=== PATIENT | male | born 1970 | race Caucasian/White ===

== ENCOUNTER 2017-12-29 12:56 | Emergency (ER) | payer OTHER ==
[~2017-12-29] VITALS: Ht 175.3 cm; Wt 95.3 kg
[~2017-12-29 12:56] MED LIST: PRM25T PO
[2017-12-29] MEDS ORDERED: RT-ALBUINH IH (14:11)
[2017-12-29] MEDS ORDERED: AMOX500T2 PO (14:11)
--- NOTE | 2017-12-29 14:14 | ED General ---
General Chief Complaint: Cough/Cold/Flu Symptoms Stated Complaint: CHEST CONGESTION,SORE THROAT,NASAL DRAINAGE Nursing Triage Note: PT HAS COUGH COLD, SINUS PRESSURE, SORETHROAT FOR APPROX 2 WEEKS DENIES FEVER Nursing Sepsis Screen: No Definite Risk Source of Information: Patient Exam Limitations: No Limitations History of Present Illness Date Seen by Provider: Dec 29, 2017 Time Seen by Provider: 13:09 Initial Comments This 47-year-old gentleman presents to the emergency room with complaints of sinus pressure, postnasal drip, sore throat, tightness a popping in the ears, and drainage that feels like it's moving into the chest. He does have some cough productive of mucus. Symptoms have been ongoing for almost 2 weeks. He reports phlegm is dark in color. His voice is hoarse which is affecting his work. He denies any fever. He recently moved to [place] from [place]. She moved back to the [facility] from working in [employer] over a year ago. He has been taking Mucinex and other zpro-lch-oqlkshz medications for his symptoms. Allergies and Home Medications Allergies Coded Allergies: No Known Drug Allergies (Unverified , 04/07/10) Home Medications Albuterol Sulfate 1 Puff Puff, 2 PUFF IH Q4H PRN for WHEEZING 1 PUFF = 90 MCG Prescribed by: FRANKY CAM on 12/29/17 1411 Amoxicillin 500 Mg Tablet, 1,000 MG PO BID Prescribed by: FRANKY CAM on 12/29/17 1411 Promethazine Hcl 25 Mg Tablet, 1 TAB PO QID PRN Prescribed by: VIC LI on 04/07/108 Patient Home Medication List Home Medication List Reviewed: Yes Review of Systems Review of Systems Constitutional: no symptoms reported EENTM: see HPI Respiratory: see HPI Cardiovascular: no symptoms reported Gastrointestinal: no symptoms reported Genitourinary: no symptoms reported Musculoskeletal: no symptoms reported Skin: no symptoms reported Psychiatric/Neurological: No Symptoms Reported Hematologic/Lymphatic: No Symptoms Reported Immunological/Allergic: no symptoms reported Past Zcunoix-Gwowtj-Ewnmrd Hx Patient Social History Alcohol Use: Denies Use Recreational Drug Use: No Smoking Status: Never a Smoker Recent Foreign Travel: No Contact w/Someone Who Travel: No Recent Infectious Disease Expo: No Recent Hopitalizations: No Past Medical History Surgeries: No Respiratory: No Cardiac: No Neurological: No Reproductive Disorders: No Gastrointestinal: No Musculoskeletal: No Endocrine: Yes (PITUITARY TUMOR) HEENT: No Psychosocial: No Integumentary: No Physical Exam Vital Signs Vital Signs - First Documented 12/29/17 13:00 Temp 98.6 Pulse 79 Resp 18 B/P (MAP) 134/86 (102) Pulse Ox 99 Capillary Refill : Less Than 3 Seconds Height, Weight, BMI Height: 5'9.00" Weight: 210lbs. oz. 95.714080mq; BMI Method:Stated General Appearance: No Apparent Distress, WD/WN HEENT: PERRL/EOMI, Normal ENT Inspection, Other (cobblestoning and postnasal drip in the posterior pharynx. Tympanic membranes retracted bilaterally.) Neck: Normal Inspection Respiratory: Lungs Clear, Normal Breath Sounds, No Accessory Muscle Use, No Respiratory Distress, Other (slight forced expiratory wheeze) Cardiovascular: Regular Rate, Rhythm, No Edema, No Murmur Extremity: Normal Inspection Neurologic/Psychiatric: Alert, Oriented x3, No Motor/Sensory Deficits, Normal Mood/Affect, laundry washer II-XII Norm as Tested Skin: Normal Color, Warm/Dry Progress/Results/Core Measures Suspected Sepsis Recent Fever Within 48 Hours: No Infection Criteria Present: None New/Unexplained Altered Menta: No Sepsis Screen: No Definite Risk SIRS Temperature:98.6 Pulse: 79 Respiratory Rate: 18 Blood Pressure 134 /86 Mean: 102 Results/Orders Micro Results Microbiology 12/29/17 Influenza Types A,B Antigen (SEB) - Final, Complete My Orders Orders - FRANKY DAMON MD Influenza A And B Antigens (12/29/17 13:09) Vital Signs/I&O 12/29/17 12/29/17 13:00 14:18 Temp 98.6 98.6 Pulse 79 79 Resp 18 18 B/P (MAP) 134/86 (102) 134/86 (102) Pulse Ox 99 99 Capillary Refill : Less Than 3 Seconds Blood Pressure Mean: 102 Departure Impression Primary Impression: Acute sinusitis Qualified Codes: J01.90 - Acute sinusitis, unspecified Additional Impression: Acute bronchitis Qualified Codes: J20.9 - Acute bronchitis, unspecified Disposition: 01 HOME, SELF-CARE Condition: Stable Departure-Patient Inst. Decision time for Depature: 14:08 Referrals: REILLY,ALBA DO (PCP/Family) Primary Care Physician Patient Instructions: Acute Bronchitis, Adult (DC), Sinusitis in Adults Add. Discharge Instructions: Drink plenty of clear liquids. Complete your antibiotics as prescribed. If the wheezing and uncontrolled coughing becomes a problem, fill the albuterol inhaler as prescribed. Use 2 puffs every 4 hours as needed. Return to care if symptoms have not completely resolved by the time you complete your antibiotics or if your symptoms are worsening despite treatment. You may continue using nyii-usk-cvcsdes medications including saline or decongestant nasal sprays. Limit decongestant nasal sprays to 3 days of use. You may also continue using oral cough and cold medications and oral decongestants. If allergies are part of the cause of symptoms, you may try an zhyz-ocm-fdbhmpt antihistamine such as Claritin (loratadine) or Zyrtec (cetirizine). All discharge instructions reviewed with patient and/or family. Voiced understanding. Scripts Albuterol Sulfate (PROAIR HFA) 1 Puff Puff 2 PUFF IH Q4H PRN for WHEEZING, #1 PUFF 1 PUFF = 90 MCG Prov: FRANKY DAMON MD 12/29/17 Amoxicillin (Amoxicillin) 500 Mg Tablet 1000 MG PO BID, #40 TAB Prov: FRANKY DAMON MD 12/29/17 FRANKY DAMON MD Dec 29, 2017 14:14
[2017-12-29 14:18] VITALS: BP 134/86
== END 2017-12-29 14:18 | disposition home or self-care (01) ==
LOC: EDUNIT# 12:56 → ER 12:59
DX: J01.90 Acute sinusitis, unspecified (principal); J20.9 Acute bronchitis, unspecified; Z79.51 Long term (current) use of inhaled steroids
CPT/HCPCS: 87804

== ENCOUNTER 2018-05-01 13:06 | Outpatient (CLI) | payer OTHER ==
[~2018-05-01] VITALS: Ht 175.3 cm; Wt 95.3 kg
[~2018-05-01 13:06] MED LIST changes: +AMOX500T2 PO; +RT-ALBUINH IH
[2018-05-01] MEDS ORDERED: MULT-1102 PO (15:05)
[2018-05-02] MEDS ORDERED: HYDR-34 PO (13:58)
== END 2018-05-01 15:12 | disposition home or self-care (01) ==
LOC: PREOP 13:06
PROVIDERS: ATTEND Surgery
DX: Z01.818 Encounter for other preprocedural examination (principal)

== ENCOUNTER 2018-05-02 11:03 | Day surgery (SDC) | payer OTHER ==
[~2018-05-02] VITALS: Ht 175.3 cm; Wt 95.3 kg
[~2018-05-02 11:03] MED LIST changes: +MULT-1102 PO
[2018-05-02] MEDS ORDERED: ceFAZolin 2 GM IV Premixed 50 ML IV ONE (11:30)
[2018-05-02] MEDS ORDERED: ceFAZolin 2 GM IV Premixed 50 ML ONE (11:45)
[2018-05-02] MEDS ORDERED: CATHETER FLUSH 10 ML SYR IV PRN (12:00)
[2018-05-02] MEDS ORDERED: ONDANSETRON 4 MG/2 ML (SDV) Z0FRAN ONE ×2 (13:01→13:09)
[2018-05-02] MEDS ORDERED: proPOfol 200 MG/20 ML (DIPRIVAN) VIAL IV ONE (13:01)
[2018-05-02] MEDS ORDERED: fentaNYL INJECTION 100 MCG/2 ML AMP ONE (13:01)
[2018-05-02] MEDS ORDERED: SEVOFLURANE (ULTANE) 15 ML INHAL SOLN ONE ×8 (13:01→18:02)
[2018-05-02] MEDS ORDERED: LIDOCAINE PF 2% 5 ML (XYLOCAINE) VIAL ONE (13:01)
[2018-05-02] MEDS ORDERED: ROCURONIUM 10 MG/ML 5 ML SYRINGE IV ONE (13:01)
[2018-05-02] MEDS ORDERED: DEXAMETHASONE 10 MG/ML (DECADRON) 1 ML VIAL ONE (13:01)
[2018-05-02] MEDS ORDERED: MIDAZOLAM 2 MG/2 ML (VERSED) VIAL ONE (13:02)
[2018-05-02] MEDS ORDERED: NEOSTIGMINE 1 MG/ML 5 ML SYRINGE ONE (13:09)
[2018-05-02] MEDS ORDERED: GLYCOPYRROLATE 0.2 MG/ML (ROBINUL) 2 ML VIAL ONE (13:09)
--- NOTE | 2018-05-02 13:55 | Progress Note-Pre Operative ---
Pre-Operative Progress Note H&P Reviewed The H&P was reviewed, patient examined and no changes noted. Date Seen by Provider: May 02, 2018 Time Seen by Provider: 13:45 Date H&P Reviewed: May 02, 2018 Time H&P Reviewed: 13:45 Pre-Operative Diagnosis: symptomatic reducible right inguinal hernia EMILIE NUNES MD May 02, 2018 13:55
[2018-05-02] MEDS ORDERED: HYDR-34 PO (13:58)
--- NOTE | 2018-05-02 13:59 | Discharge Inst-Surgical ---
D/C Lap Instructions-DES New, Converted, or Re-Newed RX: RX on Chart Follow Up Appt in 2 weeks Activity as tolerated No driving for 24 hours No driving while on pain medications Incentive Spirometry use every 2 hours while awake Regular Diet Symptoms to Report: Fever over 101 degree F, Nausea/Vomiting Infection Signs and Symptoms to report: Increased redness, Foul odor of wound, Increased drainage Bathing instructions: May shower Operative Area Clean/Dry; Keep incision clean/dry If any problems/questions: Contact your physician or go to Emergency Room EMILIE NUNES MD May 02, 2018 13:59
[2018-05-02] MEDS ORDERED: ONDANSETRON 4 MG/2 ML (SDV) Z0FRAN IVP PRN (14:00)
[2018-05-02] MEDS ORDERED: oxyCODONE/APAP 5/325MG (PERCOCET 5) TABLET PO PRN (14:00)
[2018-05-02] MEDS ORDERED: morphine INJ 10 MG/ML 1ML (SYR OR VIAL) IVP PRN (14:00)
[2018-05-02] MEDS ORDERED: ACETAMINOPHEN 325 MG TABLET PO PRN (14:00)
[2018-05-02] MEDS ORDERED: BUP/EPI 0.5% 1:200,000 (SENSORCAINE) 30 ML VIAL ONE (14:28)
[2018-05-02] MEDS ORDERED: LACTATED RINGERS 1,000 ML IV PRN (17:59)
--- NOTE | 2018-05-02 18:04 | Progress Note-Post Operative ---
Post-Operative Progess Note Surgeon (s)/Salesperson Hosiery (s) Surgeon EMILIE NUNES MD Salesperson Hosiery: freddy darling SHIP KEEPER Pre-Operative Diagnosis symptomatic reducible right inguinal hernia, screening colonoscopy Post-Operative Diagnosis reducible right indirect inguinal hernia. mild chronic stage 2 ext and int hemorrhoids. Procedure & Operative Findings Date of Procedure 05/02/18 Procedure Performed/Findings laparoscopic right inguinal hernia repair with mesh. Colonoscopy. Anesthesia Type GET Estimated Blood Loss Estimated blood loss (mL): minimal Specimens/Packing Specimens Removed none EMILIE NUNES MD May 02, 2018 18:04
[2018-05-02 18:55] VITALS: BP 145/82
[2018-05-02 19:25] VITALS: BP 138/91
[2018-05-02 19:50] VITALS: BP 138/91
--- NOTE | 2018-05-03 01:13 | OPERATIVE REPORT ---
DATE OF SERVICE: 05/02/2018 ATTENDING PRIMARY CARE PHYSICIAN: Dr. Herrera. PREOPERATIVE DIAGNOSES: Symptomatic reducible right inguinal hernia. Screening colonoscopy. POSTOPERATIVE DIAGNOSES: Right indirect inguinal hernia with nothing within the hernia sac. There was no left inguinal hernia component. Chronic stage II external and internal hemorrhoids, mild sigmoid diverticulosis. Remainder of the colon and rectum normal. PROCEDURE: Laparoscopic right inguinal hernia repair with mesh. Colonoscopy. SURGEON: Emilie Arias MD ANIMAL RESEARCHER: Ramses Armendariz APRN. ANESTHESIA: General endotracheal. ESTIMATED BLOOD LOSS: Minimal. FINDINGS: Right indirect inguinal hernia with nothing within the hernia sac. Mild chronic stage II external and internal hemorrhoids, not actively edematous or inflamed and no bleeding. Prostate gland was palpable and appeared normal. There were a few isolated descending and sigmoid colonic diverticulosis with no signs of inflammation. The remainder of the colon was normal. There were no polyps or any neoplasms identified. DISPOSITION: The patient tolerated the procedure well. INDICATIONS: The patient is a 48-year-old male who developed a pain and noticed an outpouching in the right inguinal region approximately 2 to 3 months ago. He reports that with exertional activities including swimming, which he does quite frequently. He does have worsening pain. He also reports that the bulge has grown larger in size. He was seen in the office and found to have a right inguinal hernia, which was reducible; however, tender to palpation. This gentleman also does travel abroad for long periods of time to the country of [place]. He reports that he is going to leave for another extended period of time and would like to have a screening colonoscopy. He reports he has not had one up to this point in his life. He does not report any major issues with diarrhea nor constipation as well as no red blood per rectum nor any dark tarry stools. He also does not report any family history of colon cancer. DESCRIPTION OF PROCEDURE: The patient was brought to the operating room, laid supine on the table. After adequate IV pain and sedative medications and general endotracheal intubation, the abdomen was prepped and draped in standard surgical fashion. A 0.5% Marcaine with epinephrine was then used to anesthetize the overlying skin in the infraumbilical rim and a skin incision was made using a 15 blade. A sharp towel clamp was used to retract the abdominal wall anteriorly and a Veress needle was inserted with a low opening pressure of 0 mmHg and the abdomen was insufflated to 15 mmHg pressure. The Veress needle was removed and a 5 mm Xcel trocar was placed followed by a 5 mm 45-degree angle laparoscope visualizing the peritoneal cavity. A 4-quadrant abdominal exploration was performed. A right indirect inguinal hernia was identified with nothing within the hernia sac. There was no left inguinal hernia component. It was visualized and the omentum, small bowel, colon appeared normal. We then proceed to place bilateral 5 mm ports after the skin and peritoneal lining were anesthetized using 0.5% Marcaine and a transverse skin incision was made using a 15 blade. The patient was then placed in Trendelenburg position. The peritoneal lining was then opened starting laterally using a Sonicision towards the conjoint tendon and inguinal ligament. We then proceeded medially until the Carmelo's ligament really was reached. We then proceeded with our inferior dissection encompassing the entire hernia sac throughout the process. We also identified the cord and its surrounding structures during this process and left these intact. Good hemostasis was observed and a Bard 3DMax polypropylene mesh was placed into the defect and then tacked to Carmelo's ligament medially with absorbable tacks and conjoint tendon laterally. The peritoneal lining was then placed entirely over the mesh and a few absorbable tacks were placed to keep this in place. Good hemostasis was observed. The 10 mm port site fascia and peritoneum were then closed under direct visualization using a Prem-Garcia device and 0 Vicryl suture. The abdomen was desufflated and the remaining ports were removed. All skin incisions were closed using 4-0 Monocryl running subcuticular sutures. Wounds were then cleaned and covered with Dermabond. The patient tolerated the procedure well. We will start IV normal pain medication as well as clear liquid diet. Once he is tolerating clears, has good pain control with oral pain medications, ambulating well, we will discharge him home. He will be instructed to do no heavy lifting or exertion, especially for the first 2 weeks, and then slowly increase activity on a weekly basis until he reaches six points at which he has no restrictions. Under the same anesthesia, we then proceeded with the colonoscopy portion of procedure. The patient was placed in frog leg position. A digital rectal examination was performed. Mild chronic stage II external and internal hemorrhoids were identified, which were not actively edematous nor inflamed and no bleeding. Normal sphincter tone was felt and there were no palpable masses. Prostate gland was palpable and appeared normal. The endoscope was then intubated into the anus and rectum gently insufflated. The endoscope was then advanced to the valves of Allen in the rectum with no polyps or any neoplasms identified. We then proceeded through the sigmoid colon where for a few isolated mild diverticula identified as well as in the descending colon. There were no mucosal inflammatory changes to indicate any active diverticulitis. The endoscope was then advanced through the remainder of the descending, transverse and ascending colon to the cecum. These segments were normal. There were no polyps or any neoplasms identified throughout the colon or rectum. The endoscope was then slowly withdrawn while taking a second look and suctioning of residual air with no additional findings. The patient tolerated the procedure well. We will recommend a high fiber diet with at least 30 grams of fiber per day as well as significant amounts of water on a daily basis to promote soft stools on a daily basis as well. He does not need another colonoscopy for the 10 years; however, sooner if he becomes symptomatic. Job ID: [id number] DocumentID: [id number] Dictated Date: 05/02/2018 18:14:13 Soccer Commentator Date: 05/03/2018 01:13:21 Dictated By: EMILIE ARIAS MD
== END 2018-05-02 19:50 | disposition home or self-care (01) ==
LOC: SDC 11:03
PROVIDERS: ATTEND Surgery
DX: K40.90 Unilateral inguinal hernia, without obstruction or gangrene, not specified as recurrent (principal); Z12.11 Encounter for screening for malignant neoplasm of colon; K64.1 Second degree hemorrhoids; K57.30 Diverticulosis of large intestine without perforation or abscess without bleeding; D44.3 Neoplasm of uncertain behavior of pituitary gland
CPT/HCPCS: 87081